=== PATIENT | female | born 1960 | race American Indian/Alaskan Native ===

== ENCOUNTER 2018-12-21 20:29 | Emergency (ER) | payer OTHER ==
[2018-12-21] MEDS ORDERED: ACTIDOSE-AQUA PO ONE (21:12)
[2018-12-21] MEDS ORDERED: ZOFRAN IV ONE (21:12)
[2018-12-21] MEDS ORDERED: NACL 0.9% 1000 ML 1,000 ML IV ONE (21:12)
--- NOTE | 2018-12-21 21:18 | Emergency Department Report ---
History of Present Illness - General Chief Complaint: Psych Stated Complaint: OVERDOSE Time Seen by Provider: 12/21/18 21:01 Source: patient Mode of arrival: Ambulatory Limitations: No Limitations - History of Present Illness Initial Comments: 68-year-old female with history of depression, fibromyalgia, restless leg syndrome, seizures presents to the ED following an intentional overdose. Daughter states patient took a handful of medications consisting of topiramate, clonazepam, and Mobic. Patient states she does not want to live anymore because of her chronic leg pain. Patient took medications at approximately 7:40 PM. Patient reports nausea, no vomiting. Of note. pt's medication bottles are prescribed to [facility]. Daughter states pt recently changed her name. Complaint: intentional overdose -: This evening Intent: suicide attempt How Overdose Was Discovered: family/friend present (daughter) Context: Intentional Overdose: other (due to chronic pain) Treatments Prior to Arrival: none - Related Data Home Medications Medication Instructions Recorded Confirmed Last Taken Amitiza 24 mcg PO DAILY 12/21/18 12/21/18 Unknown Amoxicillin [Trimox] 500 mg PO Q6HR 12/21/18 12/21/18 Unknown Buspirone HCl [busPIRone] 15 mg PO TID 12/21/18 12/21/[address] 75 mg PO BID 12/21/18 12/21/18 Unknown Duloxetine HCl [Cymbalta] 60 mg PO DAILY 12/21/18 12/21/18 Unknown Ibuprofen [Motrin 800 MG tab] 800 mg PO Q6HR PRN 12/21/18 12/21/18 Unknown Lipitor 20 mg PO HS 12/21/18 12/21/18 Unknown Meloxicam [Mobic] 7.5 mg PO QDAY 12/21/18 12/21/18 Unknown Methocarbamol [Robaxin] 500 mg PO DAILY PRN 12/21/18 12/21/18 Unknown Mirtazapine [Remeron 15mg TAB] 15 mg PO QHS 12/21/18 12/21/18 Unknown Ondansetron [Zofran Odt] 4 mg PO Q8HR 12/21/18 12/21/18 Unknown Pantoprazole Sodium [Protonix] 40 mg PO DAILY 12/21/18 12/21/18 Unknown Promethazine [Phenergan] 25 mg PO Q6HR PRN 12/21/18 12/21/18 Unknown Sertraline [Zoloft] 50 mg PO DAILY 12/21/18 12/21/18 Unknown Sucralfate [Carafate] 1 gm PO Q6HR 12/21/18 12/21/18 Unknown clonazePAM 2 mg PO HS 12/21/18 12/21/18 Unknown clonazePAM [KlonoPIN] 2 mg PO HS 12/21/18 12/21/18 Unknown rOPINIRole [Requip] 1 mg PO HS 12/21/18 12/21/18 Unknown traMADol [Ultram 50 MG tab] 50 mg PO Q6HR PRN 12/21/18 12/21/18 Unknown traZODone [Desyrel] 50 mg PO HS 12/21/18 12/21/18 Unknown Allergies Allergy/AdvReac Type Severity Reaction Status Date / Time amoxicillin Allergy Hives Verified 12/21/18 21:06 latex AdvReac Hives Verified 12/21/18 21:07 ED Review of Systems ROS: Stated complaint: SUICIDAL IDEATIONS Other details as noted in HPI Comment: All other systems reviewed and negative Gastrointestinal: nausea. denies: vomiting Psychiatric: depression, suicidal thoughts ED Past Medical Hx - Past Medical History Hx Arthritis: Yes (Rheumatoid) Hx Seizures: Yes Additional medical history: Fibromylagia - Surgical History Past Surgical History?: Yes Additional Surgical History: Hysterectomy, Neck Surgery - Social History Smoking Status: Never Smoker Substance Use Type: None - Medications Home Medications: Home Medications Medication Instructions Recorded Confirmed Last Taken Type Amitiza 24 mcg PO DAILY 12/21/18 12/21/18 Unknown History Amoxicillin [Trimox] 500 mg PO Q6HR 12/21/18 12/21/18 Unknown History Buspirone HCl [busPIRone] 15 mg PO TID 12/21/18 12/21/[address] 75 mg PO BID 12/21/18 12/21/18 Unknown History Duloxetine HCl [Cymbalta] 60 mg PO DAILY 12/21/18 12/21/18 Unknown History Ibuprofen [Motrin 800 MG tab] 800 mg PO Q6HR PRN 12/21/18 12/21/18 Unknown History Lipitor 20 mg PO HS 12/21/18 12/21/18 Unknown History Meloxicam [Mobic] 7.5 mg PO QDAY 12/21/18 12/21/18 Unknown History Methocarbamol [Robaxin] 500 mg PO DAILY PRN 12/21/18 12/21/18 Unknown History Mirtazapine [Remeron 15mg TAB] 15 mg PO QHS 12/21/18 12/21/18 Unknown History Ondansetron [Zofran Odt] 4 mg PO Q8HR 12/21/18 12/21/18 Unknown History Pantoprazole Sodium [Protonix] 40 mg PO DAILY 12/21/18 12/21/18 Unknown History Promethazine [Phenergan] 25 mg PO Q6HR PRN 12/21/18 12/21/18 Unknown History Sertraline [Zoloft] 50 mg PO DAILY 12/21/18 12/21/18 Unknown History Sucralfate [Carafate] 1 gm PO Q6HR 12/21/18 12/21/18 Unknown History clonazePAM 2 mg PO HS 12/21/18 12/21/18 Unknown History clonazePAM [KlonoPIN] 2 mg PO HS 12/21/18 12/21/18 Unknown History rOPINIRole [Requip] 1 mg PO HS 12/21/18 12/21/18 Unknown History traMADol [Ultram 50 MG tab] 50 mg PO Q6HR PRN 12/21/18 12/21/18 Unknown History traZODone [Desyrel] 50 mg PO HS 12/21/18 12/21/18 Unknown History ED Physical Exam - General Limitations: No Limitations General appearance: alert - Head Head exam: Present: atraumatic, normocephalic - Eye Eye exam: Present: normal appearance, PERRL, EOMI - ENT ENT exam: Present: mucous membranes moist - Neck Neck exam: Present: normal inspection - Respiratory Respiratory exam: Present: normal lung sounds bilaterally. Absent: respiratory distress - Cardiovascular Cardiovascular Exam: Present: regular rate, normal rhythm - GI/Abdominal GI/Abdominal exam: Present: soft. Absent: distended, tenderness - Extremities Exam Extremities exam: Present: normal inspection - Neurological Exam Neurological exam: Present: alert, oriented X3, other (speech is slurred) - Psychiatric Psychiatric exam: Present: depressed, suicidal ideation - Skin Skin exam: Present: warm, dry, intact, normal color ED Course Vital Signs 12/21/18 12/21/18 12/21/18 21:00 22:12 23:06 Temperature 98.3 F Pulse Rate 100 H 82 Respiratory 18 18 18 Rate Blood Pressure 141/85 Blood Pressure 135/84 [Left] Blood Pressure [Right] O2 Sat by Pulse 100 99 100 Oximetry 12/22/18 12/22/18 12/22/18 01:00 07:59 13:53 Temperature 97.8 F 97.9 F 98.0 F Pulse Rate 63 64 73 Respiratory 18 16 14 Rate Blood Pressure Blood Pressure [Left] Blood Pressure 167/89 114/70 121/80 [Right] O2 Sat by Pulse 100 97 Oximetry ED Medical Decision Making - Lab Data Result diagrams: 12/21/18 21:26 12/21/18 21:26 - EKG Data -: EKG Interpreted by [place] EKG shows normal: sinus rhythm, axis, intervals, QRS complexes, ST-T waves Rate: normal - EKG Data Interpretation: no acute changes - Medical Decision Making 58 yo F with intentional overdose, suicidal ideations. Charcoal given. Pt placed on 1013. Labs unremarkable. Tylenol repeated and remains undetected. Pt has been observed in ED x 6 hrs post ingestion. She is alert and responds appropriately. Pt is medically clear for mental health evaluation. Will dispo per psych. Critical care attestation.: If time is entered above; I have spent that time in minutes in the direct care of this critically ill patient, excluding procedure time. ED Disposition Clinical Impression: Overdose, Suicidal ideations Disposition: DC/[place]-65 PSY HOSP/PSY UNIT Is pt being admited?: No Condition: Stable Referrals: SHERRY GOLD MD [Primary Care Provider] - 3-5 Days
[2018-12-21 21:52] LABS: Basophils % (Auto) 1.1 % (0.0-1.8); Eosinophils # (Auto) 0.1 K/mm3 (0.0-0.4); Eosinophils % (Auto) 1.9 % (0.0-4.3); Hematocrit 34.9 % (30.3-42.9); Hemoglobin 10.8 gm/dl (10.1-14.3); Lymphocytes # (Auto) 2.2 K/mm3 (1.2-5.4); Lymphocytes % (Auto) 47.6 % (13.4-35.0); Mean Corpuscular HGB Conc 31 % (30-34); Mean Corpuscular Volume 89 fl (79-97); Monocytes # (Auto) 0.5 K/mm3 (0.0-0.8); Monocytes % (Auto) 9.9 % (0.0-7.3); Platelet Count 236 K/mm3 (140-440); Red Blood Count 3.93 M/mm3 (3.65-5.03); Red Cell Distribution Width 18.3 % (13.2-15.2)
[2018-12-21 22:04] LABS: INR 0.93 (0.87-1.13)
[2018-12-21 22:14] LABS: Albumin 3.6 g/dL (3.9-5); BUN/Creatinine Ratio 17; Blood Urea Nitrogen 12 mg/dL (7-17); Hemolysis Index 225
[2018-12-21] MEDS ORDERED: IBUPROFEN PO ONE ×2 (22:30→22:42)
[2018-12-21 23:07] LABS: Alanine Aminotransferase 22 units/L (7-56)
[2018-12-22 02:15] LABS: Bilirubin,Urine NEG (Negative); Blood,Urine NEG (Negative); Color,Urine Straw (Yellow); Mucus,Urine FEW /HPF; Protein,Urine <15 mg/dL mg/dL (Negative); Urobilinogen,Urine < 2.0 mg/dL (<2.0)
[2018-12-22 02:24] LABS: Amphetamine Screen,Urine PRESUMPTIVE NEGATIVE; Benzodiazepines Screen,Urine PRESUMPTIVE NEGATIVE; Cannabinoid Screen,Urine PRESUMPTIVE NEGATIVE; Cocaine Screen,Urine PRESUMPTIVE NEGATIVE; Methadone Screen,Urine PRESUMPTIVE NEGATIVE; Opiate Screen,Urine PRESUMPTIVE NEGATIVE
[2018-12-22] MEDS ORDERED: ZOLOFT PO SCH (12:00)
--- NOTE | 2018-12-22 18:45 | Consultation ---
History of Present Illness - Reason for Consult Consult date: 12/22/18 Reason for consult: psychiatric evaluation - Chief Complaint Chief complaint: attempted psych eval - History of Present Psychiatric Illness 58 year old female brought in by EMS status post suicide attempt via overdose. per report the Pt took a handful of Topamax, Mobic, and Clonazepam and did endorse intent to commit suicide upon arrival. Per the record she reused to answer questions. The assesor reported: [Per daughter (Maria A Otero, )The Pt has been living in her car for the past few days since being evicted from the hotel where she was staying with her . Daughter reports that the Pts spouse "abandoned her" after their eviction telling her that he did not want to be with her any more. Since then the Pt has been living in her daughters car and yesterday prior to arrival daughter reports going out to the vehicle to advise the Pt that she had found some money to put her in a hotel. She reports witnessing the Pt taking handfuls of medication and did intervene, sweeping her mouth to remove the some of the pills she tried to ingest. Per daughter there is a history of depression but she does not know of any prior suicide attempts or hospitalization.] She did not wake up and respond to questions. Her dog is on the bed with her. Staff report the dog is either an emotional support animal or service dog. It is unclear which. Medications and Allergies Allergies Allergy/AdvReac Type Severity Reaction Status Date / Time amoxicillin Allergy Hives Verified 12/21/18 21:06 latex AdvReac Hives Verified 12/21/18 21:07 Home Medications Medication Instructions Recorded Confirmed Last Taken Type Amitiza 24 mcg PO DAILY 12/21/18 12/21/18 Unknown History Amoxicillin [Trimox] 500 mg PO Q6HR 12/21/18 12/21/18 Unknown History Buspirone HCl [busPIRone] 15 mg PO TID 12/21/18 12/21/[address] 75 mg PO BID 12/21/18 12/21/18 Unknown History Duloxetine HCl [Cymbalta] 60 mg PO DAILY 12/21/18 12/21/18 Unknown History Ibuprofen [Motrin 800 MG tab] 800 mg PO Q6HR PRN 12/21/18 12/21/18 Unknown History Lipitor 20 mg PO HS 12/21/18 12/21/18 Unknown History Meloxicam [Mobic] 7.5 mg PO QDAY 12/21/18 12/21/18 Unknown History Methocarbamol [Robaxin] 500 mg PO DAILY PRN 12/21/18 12/21/18 Unknown History Mirtazapine [Remeron 15mg TAB] 15 mg PO QHS 12/21/18 12/21/18 Unknown History Ondansetron [Zofran Odt] 4 mg PO Q8HR 12/21/18 12/21/18 Unknown History Pantoprazole Sodium [Protonix] 40 mg PO DAILY 12/21/18 12/21/18 Unknown History Promethazine [Phenergan] 25 mg PO Q6HR PRN 12/21/18 12/21/18 Unknown History Sertraline [Zoloft] 50 mg PO DAILY 12/21/18 12/21/18 Unknown History Sucralfate [Carafate] 1 gm PO Q6HR 12/21/18 12/21/18 Unknown History clonazePAM 2 mg PO HS 12/21/18 12/21/18 Unknown History clonazePAM [KlonoPIN] 2 mg PO HS 12/21/18 12/21/18 Unknown History rOPINIRole [Requip] 1 mg PO HS 12/21/18 12/21/18 Unknown History traMADol [Ultram 50 MG tab] 50 mg PO Q6HR PRN 12/21/18 12/21/18 Unknown History traZODone [Desyrel] 50 mg PO HS 12/21/18 12/21/18 Unknown History Active Meds: Active Medications Atorvastatin Calcium (Lipitor) 20 mg PO QHS [facility] Sertraline HCl (Zoloft) 50 mg PO DAILY [facility] Last Admin: 12/22/18 15:00 Dose: 50 mg Documented by: Past psychiatric history - Past Medical History Past Medical History: other (unable to assess) - Social History Social history: other (see HPI. unable to assess) Mental Status Exam - Vital signs Last Vital Signs Temp 98.0 F 12/22/18 13:53 Pulse 73 12/22/18 13:53 Resp 14 12/22/18 13:53 BP 121/80 12/22/18 13:53 Pulse Ox 97 12/22/18 07:59 - Exam Narrative exam: unable to assess Results Result Diagrams: 12/21/18 21:26 12/21/18 21:26 Abnormal lab results 12/21/18 12/21/18 12/21/18 Range/Units 21:26 21: 21:26 RDW 18.3 H (13.2-15.2) % Lymph % (Auto) 47.6 H (13.4-35.0) % [place] % (Auto) 9.9 H (0.0-7.3) % Seg Neutrophils % 39.5 L (40.0-70.0) % APTT 20.0 L (24.2-36.6) Sec. Chloride 113.0 H (98-107) mmol/L Carbon Dioxide 19 L (22-30) mmol/L AST 46 H (5-40) units/L Albumin 3.6 L (3.9-5) g/dL Urine pH (5.0-7.0) Salicylates (2.8-20.0) mg/dL Acetaminophen (10.0-30.0) ug/mL 12/21/18 12/21/18 12/22/18 Range/Units 21:26 21:26 01:03 RDW (13.2-15.2) % Lymph % (Auto) (13.4-35.0) % [place] % (Auto) (0.0-7.3) % Seg Neutrophils % (40.0-70.0) % APTT (24.2-36.6) Sec. Chloride (98-107) mmol/L Carbon Dioxide (22-30) mmol/L AST (5-40) units/L Albumin (3.9-5) g/dL Urine pH (5.0-7.0) Salicylates < 0.3 L (2.8-20.0) mg/dL Acetaminophen < 5.0 L < 5.0 L (10.0-30.0) ug/mL 12/22/18 Range/Units 01:30 RDW (13.2-15.2) % Lymph % (Auto) (13.4-35.0) % [place] % (Auto) (0.0-7.3) % Seg Neutrophils % (40.0-70.0) % APTT (24.2-36.6) Sec. Chloride (98-107) mmol/L Carbon Dioxide (22-30) mmol/L AST (5-40) units/L Albumin (3.9-5) g/dL Urine pH 8.0 H (5.0-7.0) Salicylates (2.8-20.0) mg/dL Acetaminophen (10.0-30.0) ug/mL All other labs normal. Assessment and Plan Assessment and plan: Impression: unable to assess reported intentional overdose on topamax, mobic, and klonopin Recommendation: continue 1013 and reassess in 24 hours monitor for klonopin withdrawal symptoms dispo: continue 1013. Psychiatric facilities generally wait 24 hours after a confirmed overdose to accept a patient. staffed with Dr. Epperson
[2018-12-22] MEDS ORDERED: NON-FORMULARY (Lipitor 20 MG) PO SCH (22:00)
[2018-12-23 02:35] VITALS: BP 114/73
== END 2018-12-23 05:17 ==
LOC: ED 20:29 → EEVIPCON 20:29 → ED 12-23 05:17
DX: T42.6X2A Poisoning by other antiepileptic and sedative-hypnotic drugs, intentional self-harm, initial encounter (principal); T42.4X2A Poisoning by benzodiazepines, intentional self-harm, initial encounter; T39.392A Poisoning by other nonsteroidal anti-inflammatory drugs [NSAID], intentional self-harm, initial encounter; R11.0 Nausea; M19.90 Unspecified osteoarthritis, unspecified site; Z79.899 Other long term (current) drug therapy; Z88.1 Allergy status to other antibiotic agents; Z91.040 Latex allergy status; Z90.710 Acquired absence of both cervix and uterus; Y92.89 Other specified places as the place of occurrence of the external cause
CPT/HCPCS: 36415; 80053; 80307; 81001; 85025; 85610; 85730; 93005; 93010; 96374; 99285; A9270; G0480; J2405; J7030; 80320; 96361

== ENCOUNTER 2019-03-14 17:06 | Emergency (ER) | payer SELFPAY ==
--- NOTE | 2019-03-14 17:23 | Event Note ---
ED Screening Note Date of service: 03/14/19 Time: 17:19 ED Screening Note: This is a 59 y.o. F. that presents to the ER with thoughts of suicide. Patient states she was going to end her life with pills. Patient states "I'm sick of being here and want to be gone". Patient states she is sick of life and pain. States pain is all over and her PCP don't care. This initial assessment/diagnostic orders/clinical plan/treatment(s) is/are subject to change based on patients health status, clinical progression and re- assessment by fellow clinical providers in the ED. Further treatment and workup at subsequent clinical providers discretion. Patient/guardian urged not to elope from the ED as their condition may be serious if not clinically assessed and managed. Initial orders include: Labs Main ED
--- NOTE | 2019-03-14 18:08 | Emergency Department Report ---
ED Psych HPI - General Chief Complaint: Psych Stated Complaint: SI THOUGHTS Time Seen by Provider: 03/14/19 17:19 Source: patient Mode of arrival: Ambulatory - History of Present Illness Initial Comments: 59-year-old female with history of depression, fibromyalgia, chronic pain p resents to ED with report of suicidal ideation. Patient states she is tired of being in pain, also reports that her left her, and she is currently homeless. Patient states she has a plan to overdose on pills. Denies any homicidal ideation or hallucinations. Patient denies any alcohol or drug use. MD Complaint: suicidal ideation -: unknown Associated Psychiatric Symptoms: suicidal ideation History of same: Yes Quality: constant Improves With: none Worsens With: none Context: significant life stressor Associated Symptoms: denies other symptoms Treatments Prior to Arrival: none If Self Harm: has plan Details of Plan: overdose on pills - Related Data Home Medications Medication Instructions Recorded Confirmed Last Taken Amitiza 24 mcg PO DAILY 12/21/18 12/21/18 Unknown Amoxicillin [Trimox] 500 mg PO Q6HR 12/21/18 12/21/18 Unknown Buspirone HCl [busPIRone] 15 mg PO TID 12/21/18 12/21/[address] 75 mg PO BID 12/21/18 12/21/18 Unknown Duloxetine HCl [Cymbalta] 60 mg PO DAILY 12/21/18 12/21/18 Unknown Ibuprofen [Motrin 800 MG tab] 800 mg PO Q6HR PRN 12/21/18 12/21/18 Unknown Lipitor 20 mg PO HS 12/21/18 12/21/18 Unknown Meloxicam [Mobic] 7.5 mg PO QDAY 12/21/18 12/21/18 Unknown Methocarbamol [Robaxin] 500 mg PO DAILY PRN 12/21/18 12/21/18 Unknown Mirtazapine [Remeron 15mg TAB] 15 mg PO QHS 12/21/18 12/21/18 Unknown Ondansetron [Zofran Odt] 4 mg PO Q8HR 12/21/18 12/21/18 Unknown Pantoprazole Sodium [Protonix] 40 mg PO DAILY 12/21/18 12/21/18 Unknown Promethazine [Phenergan] 25 mg PO Q6HR PRN 12/21/18 12/21/18 Unknown Sertraline [Zoloft] 50 mg PO DAILY 12/21/18 12/21/18 Unknown Sucralfate [Carafate] 1 gm PO Q6HR 12/21/18 12/21/18 Unknown clonazePAM 2 mg PO HS 12/21/18 12/21/18 Unknown clonazePAM [KlonoPIN] 2 mg PO HS 12/21/18 12/21/18 Unknown rOPINIRole [Requip] 1 mg PO HS 12/21/18 12/21/18 Unknown traMADol [Ultram 50 MG tab] 50 mg PO Q6HR PRN 12/21/18 12/21/18 Unknown traZODone [Desyrel] 50 mg PO HS 12/21/18 12/21/18 Unknown Allergies Allergy/AdvReac Type Severity Reaction Status Date / Time amoxicillin Allergy Hives Verified 12/21/18 21:06 latex AdvReac Hives Verified 12/21/18 21:07 ED Review of Systems ROS: Stated complaint: SI THOUGHTS Other details as noted in HPI Comment: All other systems reviewed and negative Musculoskeletal: other (reports chronic pain diffusely) Psychiatric: depression, suicidal thoughts. denies: auditory hallucinations, visual hallucinations, homicidal thoughts ED Past Medical Hx - Past Medical History Previous Medical History?: Yes Hx GERD: Yes Hx Arthritis: Yes (Rheumatoid) Hx Seizures: Yes Hx Psychiatric Treatment: Yes (Depression) Additional medical history: Fibromylagia. spinal pain - Surgical History Past Surgical History?: Yes Additional Surgical History: Hysterectomy, Neck Surgery - Social History Smoking Status: Never Smoker Substance Use Type: None - Medications Home Medications: Home Medications Medication Instructions Recorded Confirmed Last Taken Type Amitiza 24 mcg PO DAILY 12/21/18 12/21/18 Unknown History Amoxicillin [Trimox] 500 mg PO Q6HR 12/21/18 12/21/18 Unknown History Buspirone HCl [busPIRone] 15 mg PO TID 12/21/18 12/21/[address] 75 mg PO BID 12/21/18 12/21/18 Unknown History Duloxetine HCl [Cymbalta] 60 mg PO DAILY 12/21/18 12/21/18 Unknown History Ibuprofen [Motrin 800 MG tab] 800 mg PO Q6HR PRN 12/21/18 12/21/18 Unknown History Lipitor 20 mg PO HS 12/21/18 12/21/18 Unknown History Meloxicam [Mobic] 7.5 mg PO QDAY 12/21/18 12/21/18 Unknown History Methocarbamol [Robaxin] 500 mg PO DAILY PRN 12/21/18 12/21/18 Unknown History Mirtazapine [Remeron 15mg TAB] 15 mg PO QHS 12/21/18 12/21/18 Unknown History Ondansetron [Zofran Odt] 4 mg PO Q8HR 12/21/18 12/21/18 Unknown History Pantoprazole Sodium [Protonix] 40 mg PO DAILY 12/21/18 12/21/18 Unknown History Promethazine [Phenergan] 25 mg PO Q6HR PRN 12/21/18 12/21/18 Unknown History Sertraline [Zoloft] 50 mg PO DAILY 12/21/18 12/21/18 Unknown History Sucralfate [Carafate] 1 gm PO Q6HR 12/21/18 12/21/18 Unknown History clonazePAM 2 mg PO HS 12/21/18 12/21/18 Unknown History clonazePAM [KlonoPIN] 2 mg PO HS 12/21/18 12/21/18 Unknown History rOPINIRole [Requip] 1 mg PO HS 12/21/18 12/21/18 Unknown History traMADol [Ultram 50 MG tab] 50 mg PO Q6HR PRN 12/21/18 12/21/18 Unknown History traZODone [Desyrel] 50 mg PO HS 12/21/18 12/21/18 Unknown History ED Physical Exam - General Limitations: No Limitations General appearance: alert, in no apparent distress - Head Head exam: Present: atraumatic, normocephalic - Eye Eye exam: Present: normal appearance, EOMI - ENT ENT exam: Present: mucous membranes moist - Neck Neck exam: Present: normal inspection - Respiratory Respiratory exam: Present: normal lung sounds bilaterally. Absent: respiratory distress - Cardiovascular Cardiovascular Exam: Present: regular rate, normal rhythm - GI/Abdominal GI/Abdominal exam: Absent: distended - Extremities Exam Extremities exam: Present: normal inspection - Neurological Exam Neurological exam: Present: alert, oriented X3 - Psychiatric Psychiatric exam: Present: depressed - Skin Skin exam: Present: warm, dry, intact, normal color ED Course Vital Signs 09/13/19 17:19 Temperature 98.7 F Pulse Rate 89 Respiratory 16 Rate Blood Pressure 152/91 O2 Sat by Pulse 99 Oximetry ED Medical Decision Making - Lab Data Result diagrams: 03/14/19 18:14 03/14/19 18:14 - Medical Decision Making 59 yo F, hx depression, reports SI. Pt placed on a 1013. Labs unremarkable. Pt is medically clear for mental health evaluation. Will dispo per psych. Critical care attestation.: If time is entered above; I have spent that time in minutes in the direct care of this critically ill patient, excluding procedure time. ED Disposition Clinical Impression: Suicidal ideation Disposition: DC/TX-65 PSY HOSP/PSY UNIT Is pt being admited?: No Condition: Stable
[2019-03-14 18:13] LABS: Bilirubin,Urine NEG (Negative); Blood,Urine NEG (Negative); Color,Urine Yellow (Yellow); Mucus,Urine FEW /HPF; Protein,Urine <15 mg/dL mg/dL (Negative); Urobilinogen,Urine < 2.0 mg/dL (<2.0)
[2019-03-14 18:21] LABS: Amphetamine Screen,Urine PRESUMPTIVE NEGATIVE; Benzodiazepines Screen,Urine PRESUMPTIVE NEGATIVE; Cannabinoid Screen,Urine PRESUMPTIVE NEGATIVE; Cocaine Screen,Urine PRESUMPTIVE NEGATIVE; Methadone Screen,Urine PRESUMPTIVE NEGATIVE; Opiate Screen,Urine PRESUMPTIVE NEGATIVE
[2019-03-14 18:43] LABS: Basophils # (Auto) 0.1 K/mm3 (0.0-0.1); Basophils % (Auto) 1.1 % (0.0-1.8); Eosinophils # (Auto) 0.1 K/mm3 (0.0-0.4); Eosinophils % (Auto) 1.4 % (0.0-4.3); Hematocrit 34.3 % (30.3-42.9); Hemoglobin 10.8 gm/dl (10.1-14.3); Lymphocytes # (Auto) 2.1 K/mm3 (1.2-5.4); Lymphocytes % (Auto) 41.7 % (13.4-35.0); Mean Corpuscular HGB Conc 31 % (30-34); Mean Corpuscular Volume 84 fl (79-97); Monocytes # (Auto) 0.4 K/mm3 (0.0-0.8); Monocytes % (Auto) 8.1 % (0.0-7.3); Platelet Count 344 K/mm3 (140-440); Red Blood Count 4.09 M/mm3 (3.65-5.03); Red Cell Distribution Width 18.1 % (13.2-15.2)
[2019-03-14 18:56] LABS: BUN/Creatinine Ratio 9; Blood Urea Nitrogen 7 mg/dL (7-17); Calcium 9.1 mg/dL (8.4-10.2); Hemolysis Index 8
[2019-03-14] MEDS ORDERED: ULTRAM PO ONE (21:32)
[2019-03-14] MEDS ORDERED: NACL 0.9% 1000 ML 1,000 ML ONE (21:47)
[2019-03-15] MEDS ORDERED: REQUIP PO ONE (00:54)
[2019-03-15] MEDS ORDERED: TYLENOL PO ONE (05:05)
[2019-03-15] MEDS ORDERED: TYLENOL ONE (05:06)
[2019-03-15] MEDS ORDERED: IBUPROFEN PO ONE (09:43)
--- NOTE | 2019-03-15 10:47 | Consultation ---
History of Present Illness - Reason for Consult Consult date: 03/15/19 Reason for consult: Mental Health Evaluation Requesting physician: TY MAR - Chief Complaint Chief complaint: "I have no reason to live" - History of Present Psychiatric Illness 59 y.o. AA female who presented to the ER for SI's. Today the patient was calm during the assessment. She stated that she is dealing with life stressors (unemployment, homelessness, and marital issues). She stated that she have chronic pain as well. She stated that she haven't been able to see a "pain doctor" nor a psychiatrist because of lack of insurance. She endorsed Si's, but would not confirm or deny a suicide plan. She acknowledged a previous suicide attempt by overdoing on pills 4 months ago. She rate her depression 9/10, with 10 being the worse. She denies HI's and AVH's. She denies a poor appetite, but acknowledged erratic sleep. She denies recreational drug use and alcohol consumption (etoh). Medications and Allergies Allergies Allergy/AdvReac Type Severity Reaction Status Date / Time amoxicillin Allergy Hives Verified 12/21/18 21:06 latex AdvReac Hives Verified 12/21/18 21:07 Home Medications Medication Instructions Recorded Confirmed Last Taken Type Amitiza 24 mcg PO DAILY 12/21/18 03/14/19 Unknown History Buspirone HCl [busPIRone] 15 mg PO TID 12/21/18 03/14/[address] 75 mg PO BID 12/21/18 03/14/19 Unknown History Duloxetine HCl [Cymbalta] 60 mg PO DAILY 12/21/18 03/14/19 Unknown History Ibuprofen [Motrin 800 MG tab] 800 mg PO Q6HR PRN 12/21/18 03/14/19 Unknown History Lipitor 20 mg PO HS 12/21/18 03/14/19 Unknown History Meloxicam [Mobic] 7.5 mg PO QDAY 12/21/18 03/14/19 Unknown History Methocarbamol [Robaxin] 500 mg PO DAILY PRN 12/21/18 03/14/19 Unknown History Mirtazapine [Remeron 15mg TAB] 15 mg PO QHS 12/21/18 03/14/19 Unknown History Ondansetron [Zofran Odt] 4 mg PO Q8HR 12/21/18 03/14/19 Unknown History Pantoprazole Sodium [Protonix] 40 mg PO DAILY 12/21/18 03/14/19 Unknown History Promethazine [Phenergan] 25 mg PO Q6HR PRN 12/21/18 03/14/19 Unknown History Sertraline [Zoloft] 50 mg PO DAILY 12/21/18 03/14/19 Unknown History Sucralfate [Carafate] 1 gm PO Q6HR 12/21/18 03/14/19 Unknown History clonazePAM 2 mg PO HS 12/21/18 03/14/19 Unknown History clonazePAM [KlonoPIN] 2 mg PO HS 12/21/18 03/14/19 Unknown History rOPINIRole [Requip] 1 mg PO HS 12/21/18 03/14/19 Unknown History traMADol [Ultram 50 MG tab] 50 mg PO Q6HR PRN 12/21/18 03/14/19 Unknown History traZODone [Desyrel] 50 mg PO HS 12/21/18 03/14/19 Unknown History Active Meds: Active Medications Ropinirole HCl (Requip) 1 mg PO HS [facility] Past psychiatric history - Past Medical History Past Medical History: other (Chromc Pain) Past Surgical History: No surgical history - past Psychiatric treatment and history psychiatric treatment history: Hx of suicide attempt by overdosing. Denies a fam psy hx. - Social History Social history: other (Homeless) Mental Status Exam - Vital signs Last Vital Signs Temp 98.4 F 03/15/19 09:29 Pulse 92 H 03/15/19 09:29 Resp 16 03/15/19 01:00 BP 148/92 03/15/19 09:29 Pulse Ox 99 03/15/19 09:29 - Exam Narrative exam: MSE: Appearance: calm Behavior: regular eye contact Speech: regular rate and tone Mood: "depressed" Affect: congruent to mood Thought Process: circumstantial Thought Content: denies HI's and AVH's Motor Activity: laying in bed Cognition: A/O x3 Insight: variable Judgment: poor Results Result Diagrams: 03/14/19 18:14 03/14/19 18:14 Abnormal lab results 03/14/19 03/14/19 03/14/19 Range/Units 18:14 18:14 18:14 MCH (28-32) pg RDW (13.2-15.2) % Lymph % (Auto) (13.4-35.0) % [place] % (Auto) (0.0-7.3) % Glucose 103 H (65-100) mg/dL Salicylates < 0.3 L (2.8-20.0) mg/dL Acetaminophen < 5.0 L (10.0-30.0) ug/mL 03/14/19 Range/Units 18:14 MCH 26 L (28-32) pg RDW 18.1 H (13.2-15.2) % Lymph % (Auto) 41.7 H (13.4-35.0) % [place] % (Auto) 8.1 H (0.0-7.3) % Glucose (65-100) mg/dL Salicylates (2.8-20.0) mg/dL Acetaminophen (10.0-30.0) ug/mL All other labs normal. Assessment and Plan Assessment and plan: Impression: MDD. Today the patient was calm during the assessment. The patient endorsed SI's. DDx: R/O Bipolar DO, Somatic Symptoms DO Recommendation/Plan: Continue 1013 and start Remeron 15 mg PO HS for depression and Buspar 7.5 mg Po BID for anxiety. Discussed suicidality/medication induced liliana with the patient reference Remeron, she verbalized understanding. Dispo: The patient was referred to inpatient psy services. Will staff with Dr Branidn Epperson.
[2019-03-15] MEDS: BUSPAR PO SCH ×2 (11:31→22:55)
[2019-03-15] MEDS ORDERED: ULTRAM PO ONE (16:28)
[2019-03-15] MEDS ORDERED: ULTRAM ONE (18:32)
[2019-03-15] MEDS: REQUIP PO SCH (22:55)
[2019-03-15] MEDS: REMERON PO SCH (22:55)
--- NOTE | 2019-03-16 09:09 | Progress Note ---
Subjective - Reason for Consult Consult date: 03/16/19 Reason for consult: Psychiatry Follow-up - Chief Complaint Chief complaint: "I feel a little better" 59 y.o. AA female who presented to the ER for SI's. Today the patient was calm during the assessment. She stated that she feel "a little better" because she has her service dog with her. She continue to endorse SI's, but would not confirm or deny a suicide plan. She denies HI's and AVH's. She denies any side effects from her medication. Mental Status Exam - Vital signs Last Vital Signs Temp 97.6 F 03/16/19 08:25 Pulse 82 03/16/19 08:25 Resp 18 03/16/19 08:25 BP 156/30 03/16/19 08:25 Pulse Ox 99 03/16/19 08:25 - Exam Narrative exam: MSE: Appearance: calm, cooperative Behavior: regular eye contact Speech: regular rate and tone Mood: "depressed" Affect: congruent to mood Thought Process: circumstantial Thought Content: denies HI's and AVH's Motor Activity: laying in bed Cognition: A/O x3 Insight: fair Judgment: variable Assessment and Plan Impression: MDD. Today the patient was calm during the assessment. The patient continue to endorse SI's. DDx: R/O Bipolar DO, Somatic Symptoms DO Recommendation/Plan: Continue 1013 and Remeron 15 mg PO HS for depression and Buspar 7.5 mg Po BID for anxiety. Discussed suicidality/medication induced liliana with the patient reference Remeron, she verbalized understanding. Dispo: The patient was referred to inpatient psy services. Will staff with Dr Brandin Epperson.
[2019-03-16] MEDS: BUSPAR PO SCH ×2 (11:00→21:40)
[2019-03-16] MEDS ORDERED: ULTRAM ONE (14:26)
[2019-03-16] MEDS ORDERED: ULTRAM PO ONE (14:30)
[2019-03-16] MEDS ORDERED: TYLENOL #3 PO ONE (21:06)
[2019-03-16] MEDS: REMERON PO SCH (21:40)
[2019-03-16] MEDS: REQUIP PO SCH (21:40)
[2019-03-17 08:05] VITALS: BP 129/84
[2019-03-17] MEDS: BUSPAR PO SCH (09:44)
[2019-03-17] MEDS ORDERED: ULTRAM PO ONE (09:52)
--- NOTE | 2019-03-17 10:35 | Progress Note ---
Subjective - Reason for Consult Consult date: 03/17/19 Reason for consult: Psychiatry Follow-up - Chief Complaint Chief complaint: "I'm feeling well" 59 y.o. AA female who presented to the ER for SI's. Today the patient was calm during the assessment. She stated that she has hope about her life. She stated that she plan to go to a longterm and apply for jobs. She stated that she want to get "stable." She denies SI/HI's and AVH's. She denies any side effects from her medication. Mental Status Exam - Vital signs Last Vital Signs Temp 97.8 F 03/17/19 07:00 Pulse 70 03/17/19 07:00 Resp 16 03/17/19 09:48 BP 129/84 03/17/19 07:00 Pulse Ox 98 03/17/19 09:48 - Exam Narrative exam: MSE: Appearance: calm, cooperative Behavior: regular eye contact Speech: regular rate and tone Mood: "better" Affect: congruent to mood Thought Process: logical Thought Content: denies S/HI's and AVH's Motor Activity: laying in bed Cognition: A/O x3 Insight: appropriate Judgment: appropriate Assessment and Plan Impression: MDD. Today the patient was calm during the assessment. The patient is no threat to self. DDx: R/O Bipolar DO, Somatic Symptoms DO Recommendation/Plan: Rescind 1013. Continue Remeron 15 mg PO HS for depression a nd Buspar 7.5 mg Po BID for anxiety. Discussed suicidality/medication induced liliana with the patient reference Remeron, she verbalized understanding. Discussed generalized coping skills with the patient, she verbalized understanding Dispo: The patient can follow up with [facility] for outpatient psy services. Staffed with Dr Brandin Epperson.
--- NOTE | 2019-03-17 13:14 | Emergency Department Report ---
Blank Doc - Documentation Documentation: I was asked to provide discharge paperwork for this patient as she has been sabine ared by psych and they are rescinding the 1013. The patient does deny any current suicidal ideations and appears to have a plan on how to turn her life around for the positive. Psychiatry is recommended to continue her BuSpar and Remeron and the patient has been given a 2 week supply. She was given some referrals for the [facility] facility and other outpatient psychiatric referrals. She has been instructed to return to the emergency Department with any worsening of her symptoms, thoughts of harming herself or others, or with any acute distress.
== END 2019-03-17 14:06 | disposition home or self-care (01) ==
LOC: EEVIPCON 17:06 → ED 17:06
DX: F32.9 Major depressive disorder, single episode, unspecified (principal); M19.90 Unspecified osteoarthritis, unspecified site; K21.9 Gastro-esophageal reflux disease without esophagitis; Z98.51 Tubal ligation status; Z98.890 Other specified postprocedural states; Z88.1 Allergy status to other antibiotic agents; Z91.040 Latex allergy status
CPT/HCPCS: 36415; 80048; 80307; 81001; 85025; 99284; J7030; 80320; G0480